=== PATIENT | female | born 1980 | race Caucasian/White ===

== ENCOUNTER 2017-10-30 03:42 | Emergency (ER) | payer SELFPAY ==
[~2017-10-30] VITALS: Ht 157.5 cm; Wt 64.0 kg
[2017-10-30] MEDS ORDERED: SODIUM CHLORIDE 0.9% 1,000 ML IV ONE (04:28)
[2017-10-30] MEDS ORDERED: ONDANSETRON HCL 4MG/2ML VIAL IV STA (04:28)
[2017-10-30] MEDS ORDERED: MORPHINE SULFATE 4 MG/ML CPJ (NOT FOR IM USE) IV STA (04:28)
[2017-10-30] MEDS ORDERED: KETOROLAC 30MG/ML VIAL IV ONE (04:30)
[2017-10-30 05:07] LABS: EOSINOPHILS % 0.4 % (0.0-5.0); HEMATOCRIT. 37.3 % (36.0-48.0); LYMPHOCYTES % 19.5 % (20.0-50.0); MEAN CORPUSCULAR HEMOGLOBIN 24.2 pg (28.0-32.0); MEAN CORPUSCULAR VOLUME 75.1 fL (81.0-99.0); MEAN PLATELET VOLUME 7.4 fl (7.4-10.4); MONOCYTES % 6.1 % (2.0-8.0); PLATELET 611 x1000/uL (130-400); RED BLOOD CELL COUNT 4.97 mill/uL (4.2-5.4); RED CELL DISTRIBUTION WIDTH 16.8 % (11.6-14.6)
[2017-10-30 05:08] LABS: CHLORIDE 98 mEq/L (98-107)
[2017-10-30 05:09] LABS: PROTHROMBIN TIME 10.8 sec (9.4-11.6)
[2017-10-30 05:10] LABS: HCG SCREEN NEGATIVE
[2017-10-30] MEDS ORDERED: POTASSIUM CHLORIDE 20MEQ TABLET SR PO ONE (07:00)
[2017-10-30] MEDS ORDERED: NA PHOS,M-B/NA PHOS,DI-BA ENEMA 118ML PR ONE (07:00)
[2017-10-30] MEDS ORDERED: SORBITOL 70% SOLN 30ML PO ONE (07:00)
[2017-10-30] MEDS ORDERED: ONDANSETRON HCL 4MG/2ML VIAL IV ONE (07:00)
[2017-10-30] MEDS ORDERED: MORPHINE SULFATE 4 MG/ML CPJ (NOT FOR IM USE) IV ONE (07:00)
[2017-10-30 07:38] VITALS: BP 128/82
== END 2017-10-30 08:46 | disposition home or self-care (01) ==
LOC: ER 03:42
DX: K59.00 Constipation, unspecified (principal); R73.9 Hyperglycemia, unspecified; E87.6 Hypokalemia; K76.0 Fatty (change of) liver, not elsewhere classified; Z98.890 Other specified postprocedural states
CPT/HCPCS: 36415; 74176; 80053; 83690; 84484; 84703; 85025; 85610; 96361; 96374; 96375; 96376; 99285; J1885; J2270; J2405; J7030